=== PATIENT | female | born 1990 | race Two or more races ===

== ENCOUNTER 2019-05-09 11:18 | Emergency (ER) | payer SELFPAY ==
[2019-05-09 12:23] LABS: ABS Eosinophils 0.1 10^3/ul (0-0.6); ABS Lymphocytes 1.7 10^3/ul (1.0-4.8); ABS Monocytes 0.7 10^3/ul (0-0.8); Eosinophil % 0.6 %; Hematocrit 41 % (35-47); Hemoglobin 13.7 g/dL (12.0-16.0); Lymphocyte % 13.8 %; Mean Corpuscular HGB Conc 34 g/dL (31-36); Mean Corpuscular Hemoglobin 27 pg (27-31); Mean Corpuscular Volume 80 fL (80-97); Mean Platelet Volume 8.1 fL (7.4-10.4); Platelet Count 331 10^3/uL (150-450); Red Blood Count 5.12 10^6 /uL (3.70-4.87); Red Cell Distribution Width 15 % (10-15); White Blood Count 12.6 10^3/uL (3.5-10.8)
[2019-05-09] MEDS ORDERED: Ketorolac INJ* 30 MG/ML 1 ML VIAL IV ONE (12:36)
[2019-05-09] MEDS ORDERED: Ondansetron INJ* 2 MG/ML VIAL IV ONE (12:54)
--- NOTE | 2019-05-09 12:55 | ED ---
Abdominal Pain/Female - HPI Summary HPI Summary: This patient is a 28-year-old female presenting to the ED with severe left lower quadrant pain which began approximately 5-6 hours ago. She states she has history of PCOS, adhesions following a and hernia. Pt denies this pain in the past. Denies hx of diverticulitis. Acute onset of symptoms associated with n/v, but only dry heaving. No PO intake today. No CP, SOB. Versus a mild amount of left-sided flank pain, no urinary symptoms. No hx of hemorrhagic cyst or cyst rupture. Denies history of known kidney stones. - History of Current Complaint Chief Complaint: EDAbdPain Stated Complaint: LEFT LOWER ABDOMINAL PAIN PER EMS Time Seen by Provider: 05/09/19 11:21 Hx Obtained From: Patient ?: No Onset/Duration: Sudden Onset Timing: Constant Severity Initially: Moderate Severity Currently: Moderate Pain Intensity: 8 Pain Scale Used: 0-10 Numeric Location: Other - left flank Radiates: Yes Radiates to: LLQ Character: Sharp, Cramping Aggravating Factor(s): Nothing Alleviating Factor(s): Nothing Associated Signs and Symptoms: Positive: Negative, Nausea, Vomiting. Negative: Fever, Cough, Chest Pain, Constipation, Blood in Stool, Urinary Symptoms, Decreased Appetite, Vaginal Bleeding, Vaginal Discharge, Diarrhea - Risk Factors Ectopic Risk Factor: Negative Ovarian Torsion Risk Factor: Negative Allergies/Adverse Reactions: Allergies Allergy/AdvReac Type Severity Reaction Status Date / Time morphine Allergy See Comment Verified 05/09/19 11:41 PMH/Surg Hx/FS Hx/Imm Hx Previously Healthy: Yes - Surgical History Surgery Procedure, Year, and Place: CSECTION - Immunization History Hx Pertussis Vaccination: No Immunizations Up to Date: Yes Infectious Disease History: No Infectious Disease History: Denies: Traveled Outside the [place] in Last 30 Days - Social History Occupation: Employed Full-time Lives: With Family Alcohol Use: Occasionally Hx Substance Use: No Substance Use Type: Reports: None Hx Tobacco Use: Yes Smoking Status (MU): Light Every Day Tobacco Smoker Review of Systems Negative: Fever, Chills, Fatigue, Skin Diaphoresis Negative: Palpitations, Chest Pain Negative: Shortness Of Breath, Cough Positive: Abdominal Pain - L flank pain, Vomiting, Nausea Positive: see HPI, flank pain Negative: Arthralgia, Myalgia Skin: Negative Neurological: Negative All Other Systems Reviewed And Are Negative: Yes Physical Exam Triage Information Reviewed: Yes Vital Signs On Initial Exam: Initial Vitals Temp Pulse Resp BP Pulse Ox 97.5 F 54 22 159/88 100 05/09/19 11:19 05/09/19 11:19 05/09/19 11:19 05/09/19 11:19 05/09/19 11:19 Vital Signs Reviewed: Yes Appearance: Positive: Well-Appearing, Well-Nourished Skin: Positive: Warm, Skin Color Reflects Adequate Perfusion Head/Face: Positive: Normal Head/Face Inspection Eyes: Positive: EOMI, MANOJ, Conjunctiva Clear Neck: Positive: Supple, No Lymphadenopathy Respiratory/Lung Sounds: Positive: Clear to Auscultation, Breath Sounds Present Cardiovascular: Positive: RRR, Pulses are Symmetrical in both Upper and Lower Extremities Abdomen Description: Positive: CVA Tenderness (L) Bowel Sounds: Positive: Present Musculoskeletal: Positive: Normal, Strength/ROM Intact Neurological: Positive: Sensory/Motor Intact, Alert, Oriented to Person Place, Time, Speech Normal Psychiatric: Positive: Normal, Affect/Mood Appropriate AVPU Assessment: Alert Procedures - Sedation Patient Received Moderate/Deep Sedation with Procedure: No Diagnostics - Vital Signs Vital Signs Temp Pulse Resp BP Pulse Ox 05/09/19 11:19 97.5 F 54 22 159/88 100 - Laboratory Lab Results: Lab Results 05/09/19 Range/Units 12:17 WBC 12.6 H (3.5-10.8) 10^3/uL RBC 5.12 H (3.70-4.87) 10^6 /uL Hgb 13.7 (12.0-16.0) g/dL Hct 41 (35-47) % MCV 80 (80-97) fL MCH 27 (27-31) pg MCHC 34 (31-36) g/dL RDW 15 (10-15) % Plt Count 331 (150-450) 10^3/uL MPV 8.1 (7.4-10.4) fL Neut % (Auto) 79.6 % Lymph % (Auto) 13.8 % [place] % (Auto) 5.7 % Eos % (Auto) 0.6 % Baso % (Auto) 0.3 % Absolute Neuts (auto) 10.0 H (1.5-7.7) 10^3/ul Absolute Lymphs (auto) 1.7 (1.0-4.8) 10^3/ul Absolute Monos (auto) 0.7 (0-0.8) 10^3/ul Absolute Eos (auto) 0.1 (0-0.6) 10^3/ul Absolute Basos (auto) 0.0 (0-0.2) 10^3/ul Absolute Nucleated RBC 0.0 10^3/ul Nucleated RBC % 0.0 Result Diagrams: 05/09/19 12:17 05/09/19 12:17 Lab Statement: Any lab studies that have been ordered have been reviewed, and results considered in the medical decision making process. Abdominal Pain Fem Course/Dx - Course Course Of Treatment: During this course of treatment, the patient is evaluated for left-sided flank and left-sided lower quadrant pain. She is also endorsing nausea, however has been only dry heaving. Labs obtained which show an elevated white count at 12.6, lactic acid 3.5. She is given fluids, Toradol and Zofran with good relief of her symptoms. A CT abdomen/pelvis was obtained which is 2.5 mm calculus at the left ureterovesical junction causing moderate hydronephrosis. There are several additional small bilateral renal calculi. This was discussed with the patient. As the patient is asymptomatic at this time, she will be discharged home in stable condition. Urology follow-up is given. Toradol and Zofran prescribed for symptom control at home. - Diagnoses Provider Diagnoses: Kidney stone Discharge ED - Sign-Out/Discharge Documenting (check all that apply): Patient Departure - Discharge Plan Condition: Stable Disposition: HOME Prescriptions: Ketorolac TAB * [Toradol TAB *] 10 mg PO Q6H #16 tab Ondansetron ODT TAB* [Zofran 4 MG Odt TAB*] 4 mg PO Q6H PRN #12 tab.odt MDD 4 PRN Reason: Nausea Patient Education Materials: Kidney Stones (ED) Referrals: No Primary Care Phys,NOPCP [Primary Care Provider] - Parrish Brooks MD [Medical Doctor] - Additional Instructions: Please follow-up with urology for any worsening or changing symptoms Toradol 10 mg 4 times daily as needed for any discomfort Zofran 4 times daily for nausea - Billing Disposition and Condition Condition: STABLE Disposition: Home
[2019-05-09 12:56] LABS: ALT 8 U/L (7-52); AST 12 U/L (13-39); Albumin 4.3 g/dL (3.2-5.2); Albumin/Globulin Ratio 1.5 (1-3); Alkaline Phosphatase 59 U/L (34-104); Anion Gap 10 mmol/L (2-11); BUN/Creatinine Ratio 10.7 (8-20); Blood Urea Nitrogen 13 mg/dL (6-24); CO2 Carbon Dioxide 21 mmol/L (22-32); Calcium 9.5 mg/dL (8.6-10.3); Chloride 109 mmol/L (101-111); EGFR African American 62.6 (>60); EGFR Non-African American 51.8 (>60); Globulin 2.9 g/dL (2-4); Glucose 183 mg/dL (70-100); Potassium 3.4 mmol/L (3.5-5.0); Sodium 140 mmol/L (135-145); Total Protein 7.2 g/dL (6.4-8.9)
[2019-05-09] MEDS ORDERED: NS 0.9% 1000 ML** 1,000 ML IV ONE (12:59)
[2019-05-09 13:02] LABS: HCG Pregnancy < 0.60 mIU/mL
[2019-05-09 14:16] LABS: Urine Appearance Cloudy; Urine Bilirubin Negative (Negative); Urine Blood 3+ (Negative); Urine Color Amber; Urine Glucose Negative (Negative); Urine Ketones Trace (Negative); Urine Nitrite Negative (Negative); Urine Protein 2+(100 mg/dL) (Negative); Urine Urobilinogen Negative (Negative)
[2019-05-09 14:22] LABS: Urine Bacteria Absent (Absent); Urine Red Blood Cell 3+(>10/hpf) (Absent); Urine Squamous Epithelial Cell Present (Absent); Urine White Blood Cell Trace(0-5/hpf) (Absent)
[2019-05-09 15:05] VITALS: BP 115/80
== END 2019-05-09 15:04 | disposition home or self-care (01) ==
LOC: ED 11:18
DX: N13.2 Hydronephrosis with renal and ureteral calculous obstruction (principal); F17.200 Nicotine dependence, unspecified, uncomplicated; Z88.5 Allergy status to narcotic agent
CPT/HCPCS: 36415; 74176; 80053; 81003; 81015; 83605; 83690; 84702; 85025; 86140; 87086; 96361; 96374; 96375; 99283; J1885; J2405